=== PATIENT | female | born 1990 | race Caucasian/White ===

== ENCOUNTER 2018-05-28 10:54 | Emergency (ER) | payer BC, OTHER ==
[~2018-05-28] VITALS: Ht 160 cm; Wt 68.0 kg
[2018-05-28] MEDS ORDERED: EFFEXOR25 MG PO (11:20)
[2018-05-28] MEDS ORDERED: ALPRAZOLAM0.5 MG PO (11:20)
[2018-05-28] MEDS ORDERED: ABILIFY2 MG ORAL (11:20)
[2018-05-28 11:26] VITALS: BP 116/75
[2018-05-28 11:47] LABS: BASOPHILS % (AUTO) 1.3 % (0.0-2.0); EOSINOPHILS % (AUTO) 1.1 % (0.0-3.0); HEMATOCRIT 37.1 % (37.0-47.0); HEMOGLOBIN 12.4 G/DL (12.0-16.0); LYMPHOCYTES % (AUTO) 45.4 % (20.0-45.0); MEAN CORPUSCULAR VOLUME 93 FL (80-99); MONOCYTES % (AUTO) 6.6 % (1.0-10.0); NEUTROPHILS % (AUTO) 45.6 % (45.0-75.0); PLATELET COUNT 219 K/UL (150-450); RED BLOOD COUNT 3.99 M/UL (4.20-5.40); RED CELL DISTRIBUTION WIDTH 10.3 % (11.6-14.8); WHITE BLOOD COUNT 6.2 K/UL (4.8-10.8)
[2018-05-28 11:53] LABS: APPEARANCE,URINE CLEAR; BILIRUBIN, URINE NEGATIVE (NEGATIVE); COLOR,URINE YELLOW; GLUCOSE, URINE (UA) NEGATIVE (NEGATIVE); KETONES,URINE NEGATIVE (NEGATIVE); LEUKOCYTE ESTERASE ,URINE NEGATIVE (NEGATIVE); NITRITE,URINE NEGATIVE (NEGATIVE); PH,URINE 7 (4.5-8.0); PROTEIN,URINE NEGATIVE (NEGATIVE); UROBILINOGEN,URINE NORMAL MG/DL (0.0-1.0)
[2018-05-28 11:59] LABS: ANION GAP 10 mmol/L (5-15); BLOOD UREA NITROGEN 13 mg/dL (7-18); CALCIUM 8.3 MG/DL (8.5-10.1); CARBON DIOXIDE 27 MMOL/L (21-32); CHLORIDE 105 MMOL/L (98-107); CREATININE 0.8 MG/DL (0.55-1.30); POTASSIUM 4.3 MMOL/L (3.5-5.1); SODIUM 141 MMOL/L (136-145)
[2018-05-28 12:03] LABS: ALANINE AMINOTRANSFERASE 18 U/L (12-78); ALBUMIN/GLOBULIN RATIO 1.2 (1.0-2.7); ALKALINE PHOSPHATASE 37 U/L (46-116); ASPARTATE AMINO TRANSFERASE 14 U/L (15-37); BILIRUBIN,TOTAL 0.3 MG/DL (0.2-1.0)
[2018-05-28] MEDS ORDERED: LORazepam Inj 2mg/ml 1ml IV ONE (14:00)
[2018-05-28 14:30] VITALS: BP 121/78
--- NOTE | 2018-05-28 14:52 | Diagnostic Imaging Report ---
Indication: Dyspnea Technique: One view of the chest Comparison: none Findings: Lungs and pleural spaces are clear. Heart size is normal Impression: No acute process
--- NOTE | 2018-05-28 15:13 | Emergency Room Report ---
History of Present Illness General Chief Complaint: Nausea, Vomiting, and Diarrhea Source: Patient Present Illness HPI The patient presents with vomiting and dyspnea. She vomited up some brown material earlier. She got new job and has extreme stress at this time. The dyspnea is what bothers her at this time, though she still has nausea. Extreme stress is living with mother on couch. No calf pain, hemoptysis, No BCP. No prior clot or family history. The dyspnea has been increasing over the last week and a half. Denies any fevers, cough or chest pain. Regarding the stools, she's had some loose stools but denies any melena. There is no hematochezia. She denies any abdominal pain. H/O anxiety and PTSD . Takes 2 mg xanax. 2 weeks ago she was started on Effexor. Her psychiatrist felt this would help her anxiety more. No headache, dizziness, change in vision. She denies suicidal or homicidal ideation. LNMP was 8/4 and normal for her. 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 Last Menstrual Period: 05/11/18 Now: No - unk, on control pills Reviewed Nursing Documentation: PMH: Agreed; PSxH: Agreed Nursing Documentation-PMH Hx Neurological Problems: Yes - Depression, anxiety, PTSD Review of Systems All Other Systems: negative except mentioned in HPI Physical Exam Vital Signs Date Time Temp Pulse Resp B/P (MAP) Pulse Ox O2 Delivery O2 Flow Rate FiO2 05/28/18 11:06 98.7 69 18 116/75 98 Room Air 98.8 Sp02 EP Interpretation: reviewed, normal General Appearance: well appearing, no apparent distress, GCS 15 Head: normocephalic Eyes: bilateral eye normal inspection, bilateral eye PERRL ENT: moist mucus membranes Neck: supple Respiratory: chest non-tender, lungs clear, normal breath sounds Cardiovascular #1: regular rate, rhythm Cardiovascular #2: 2+ radial (R) Gastrointestinal: normal inspection, normal bowel sounds, non tender, no mass, non-distended Musculoskeletal: back normal, gait/station normal, normal range of motion, no calf tenderness, Serenity's Sign negative Neurologic: alert, oriented x3, motor strength/tone normal, DTRs symmetric, sensory intact, cerebellar normal, normal gait, speech normal Psychiatric: anxious Skin: normal inspection, warm/dry Medical Decision Making Diagnostic Impression: Primary Impression: Nausea and vomiting Qualified Codes: R11.2 - Nausea with vomiting, unspecified Additional Impressions: Dyspnea Qualified Codes: R06.00 - Dyspnea, unspecified Hyperventilation ER Course Patient presents with vomiting brown material and dyspnea. She's had intermittent dyspnea over the last few days. Based on her vital signs and physical exam pulmonary embolus is less likely. We need to exclude cardiac cause and pulmonary causes including bronchitis, hyperventilation, bronchospasm , electrolyte abnormalities. Vomiting brown material suggests gastritis or GERD. Evaluation will be with labs, EKG and chest x-ray. Patient retreated with Masood Lisad. She denies pain at this time. Exam excludes PE at this time. EKG with sinus rhythm nonspecific ST-T wave changes. Chest x-ray is clear. Labs are unremarkable. The patient no longer vomiting but still felt dyspneic on occasion. She takes Xanax was given a dose of Ativan. Ativan "does not work". Wants Xanax. Was started on Effexor 2 weeks ago. (Taken off of Zoloft). Extreme stress in life. Discussed this as possible contributor to dyspnea. Told to call her psychiatrist tomorrow. Patient stable for outpatient observation and treatment Laboratory Tests Test 05/28/18 11:27 White Blood Count 6.2 K/UL (4.8-10.8) Red Blood Count 3.99 M/UL (4.20-5.40) L Hemoglobin 12.4 G/DL (12.0-16.0) Hematocrit 37.1 % (37.0-47.0) Mean Corpuscular Volume 93 FL (80-99) Mean Corpuscular Hemoglobin 31.2 PG (27.0-31.0) H Mean Corpuscular Hemoglobin Concent 33.6 G/DL (32.0-36.0) Red Cell Distribution Width 10.3 % (11.6-14.8) L Platelet Count 219 K/UL (150-450) Mean Platelet Volume 8.8 FL (6.5-10.1) Neutrophils (%) (Auto) 45.6 % (45.0-75.0) Lymphocytes (%) (Auto) 45.4 % (20.0-45.0) H Monocytes (%) (Auto) 6.6 % (1.0-10.0) Eosinophils (%) (Auto) 1.1 % (0.0-3.0) Basophils (%) (Auto) 1.3 % (0.0-2.0) Prothrombin Time 10.3 SEC (9.30-11.50) Prothrombin Time INR 1.0 (0.9-1.1) PTT 23 SEC (23-33) Urine Color Yellow Urine Appearance Clear Urine pH 7 (4.5-8.0) Urine Specific [place] 1.005 (1.005-1.035) Urine Protein Negative (NEGATIVE) Urine Glucose (UA) Negative (NEGATIVE) Urine Ketones Negative (NEGATIVE) Urine Occult Blood Negative (NEGATIVE) Urine Nitrite Negative (NEGATIVE) Urine Bilirubin Negative (NEGATIVE) Urine Urobilinogen Normal MG/DL (0.0-1.0) Urine Leukocyte Esterase Negative (NEGATIVE) Urine HCG, Qualitative Negative (NEGATIVE) Sodium Level 141 MMOL/L (136-145) Potassium Level 4.3 MMOL/L (3.5-5.1) Chloride Level 105 MMOL/L (98-107) Carbon Dioxide Level 27 MMOL/L (21-32) Anion Gap 10 mmol/L (5-15) Blood Urea Nitrogen 13 mg/dL (7-18) Creatinine 0.8 MG/DL (0.55-1.30) Estimate Glomerular Filtration Rate > 60 mL/min (>60) Glucose Level 101 MG/DL (74-106) Calcium Level 8.3 MG/DL (8.5-10.1) L Total Bilirubin 0.3 MG/DL (0.2-1.0) Aspartate Amino Transferase (AST) 14 U/L (15-37) L Alanine Aminotransferase (ALT) 18 U/L (12-78) Alkaline Phosphatase 37 U/L (46-116) L Total Protein 7.3 G/DL (6.4-8.2) Albumin 4.0 G/DL (3.4-5.0) Globulin 3.3 g/dL Albumin/Globulin Ratio 1.2 (1.0-2.7) Lipase 165 U/L (73-393) EKG Diagnostic Results Rate: normal Rhythm: NSR ST Segments: no acute changes Rhythm Strip Diag. Results EP Interpretation: yes Rhythm: NSR, no PVC's, no ectopy Chest X-Ray Diagnostic Results Chest X-Ray Diagnostic Results : Chest X-Ray Ordered: Yes # of Views/Limited/Complete: 1 View Indication: Shortness of Breath Interpretation: no consolidation, no effusion, no pneumothorax Impression: No acute disease Electronically Signed by: Electronically signed by Atul Asencio MD Last Vital Signs Date Time Temp Pulse Resp B/P (MAP) Pulse Ox O2 Delivery O2 Flow Rate FiO2 05/28/18 16:00 97.7 80 15 118/75 100 Room Air 98.0 Status: improved Disposition: HOME, SELF-CARE Condition: Improved Scripts Famotidine (PEPCID AC) 20 Mg Tablet 20 MG PO DAILY, #20 TAB Prov: Atul Asencio M.D. 05/28/18 Referrals: NON PHYSICIAN (PCP) Atul Asencio M.D. May 28, 2018 15:13
[2018-05-28] MEDS ORDERED: PEPCID AC20 M2 PO (15:53)
[2018-05-28 16:00] VITALS: BP_SYST 118; BP_SYST 121; BP_DIAS 75; BP_DIAS 78
[2018-05-28] MEDS ORDERED: ALPRAZolam 0.5mg tab ORAL ONE (16:00)
--- NOTE | 2018-05-29 18:03 | Cardiology Report ---
APPROVED REPORT EKG Measurement Heart [id number] Normal sinus rhythm Cannot rule out Anterior infarct, age undetermined Abnormal ECG
== END 2018-05-28 16:00 | disposition home or self-care (01) ==
LOC: EMR 12:05
DX: R11.2 Nausea with vomiting, unspecified (principal); R06.00 Dyspnea, unspecified; R06.4 Hyperventilation; F32.9 Major depressive disorder, single episode, unspecified; F41.9 Anxiety disorder, unspecified; F43.10 Post-traumatic stress disorder, unspecified; F17.200 Nicotine dependence, unspecified, uncomplicated
CPT/HCPCS: 36415; 71045; 80053; 81003; 81025; 83690; 85025; 85610; 85730; 93005; 96361; 96374; 96375; 99285; J2405; S0028